=== PATIENT | female | born 1970 | race Asian ===

== ENCOUNTER 2017-01-19 09:53 | Emergency (ER) | payer OTHER ==
[~2017-01-19] VITALS: Ht 157.5 cm; Wt 70.0 kg
[2017-01-19] MEDS ORDERED: [UNRECOGNIZED DRUG - OTHER] OU (10:03)
[2017-01-19 12:21] VITALS: BP 122/75
== END 2017-01-19 12:50 | disposition home or self-care (01) ==
LOC: EMS 09:54
DX: H10.9 Unspecified conjunctivitis (principal); R05 Cough
CPT/HCPCS: 99283

== ENCOUNTER 2017-03-09 08:24 | Emergency (ER) | payer OTHER ==
[~2017-03-09] VITALS: Ht 157.5 cm; Wt 71.8 kg
[~2017-03-09 08:24] MED LIST: [UNRECOGNIZED DRUG - OTHER] OU
[2017-03-09] MEDS ORDERED: LORazepam 1 MG TABLET PO ONE (09:15)
[2017-03-09] MEDS ORDERED: ONDANSETRON HCL 4 MG TABLET PO ONE (09:15)
[2017-03-09] MEDS ORDERED: OxyCODONE HCL/ACETAMINOPHEN 5-325 MG TABLET PO ONE (09:15)
[2017-03-09 12:12] VITALS: BP 120/70
== END 2017-03-09 12:16 | disposition home or self-care (01) ==
LOC: EMS 08:27
DX: M75.31 Calcific tendinitis of right shoulder (principal)
CPT/HCPCS: 72040; 73030; 99284; Q0162

== ENCOUNTER 2019-12-11 10:17 | Emergency (ER) | payer OTHER ==
[~2019-12-11] VITALS: Ht 157.5 cm; Wt 70.5 kg
[2019-12-11] MEDS ORDERED: FOLI-130 PO (10:28)
[2019-12-11] MEDS ORDERED: KETOROLAC TROMETHAMINE 30 MG/ML VIAL IM ONE (11:15)
[2019-12-11 12:15] VITALS: BP 138/79
== END 2019-12-11 12:23 | disposition home or self-care (01) ==
LOC: EMS 10:18
DX: J02.9 Acute pharyngitis, unspecified (principal); R03.0 Elevated blood-pressure reading, without diagnosis of hypertension
CPT/HCPCS: 87430; 96372; 99283; J1885

== ENCOUNTER 2021-02-28 22:14 | Inpatient (IN) | payer OTHER ==
[~2021-02-28] VITALS: Ht 157.5 cm; Wt 68.2 kg
[~2021-02-28 22:14] MED LIST changes: +FOLI-130 PO; -[UNRECOGNIZED DRUG - OTHER] OU
[2021-02-28 23:24] LABS: BASOPHILS % (AUTO) 0.6 % (0.0-2.0); EOSINOPHILS % (AUTO) 2.4 % (1.0-6.0); HEMATOCRIT 33.4 % (36-46); HEMOGLOBIN 10.5 g/dL (12.0-16.0); LYMPHOCYTES # (AUTO) 3.3 K/uL (1.0-4.8); LYMPHOCYTES % (AUTO) 37.4 % (22.0-44.0); MEAN CORPUSCULAR HGB CONC 31.4 G/dL (31.0-37.0); MEAN CORPUSCULAR VOLUME 64 fL (80-100); MONOCYTES # (AUTO) 0.6 K/uL (0.1-1.0); MONOCYTES % (AUTO) 6.5 % (2.0-9.0); NEUTROPHILS # (AUTO) 4.7 K/uL (1.8-7.7); NEUTROPHILS % (AUTO) 53.1 % (40.0-70.0); PLATELET COUNT (AUTO) 347 K/uL (150-450); RED BLOOD CELL COUNT(AUTO) 5.24 MIL/uL (4.00-5.20); RED CELL DISTRIBUTION WIDTH 14.7 % (11.5-14.5)
[2021-02-28 23:34] LABS: ANION GAP 6 mmol/L (8-16); CALCIUM, TOTAL 8.6 mg/dL (8.8-10.5); CARBON DIOXIDE 27 mmol/L (22-29); CHLORIDE 106 mmol/L (98-107); CREATININE 0.96 mg/dL (0.60-1.30); GLOMERULAR FILTR. RATE CALC > 60 mL/min (>60); GLUCOSE,RANDOM 118 mg/dL (70-110); POTASSIUM 3.3 mmol/L (3.5-5.1); SODIUM SERUM 139 mmol/L (136-145); UREA NITROGEN, BLOOD 14 mg/dL (7-18)
[2021-02-28 23:49] LABS: ALANINE AMINOTRANSFERASE 24 U/L (12-78); ALBUMIN 3.4 g/dL (3.4-5.0); ALKALINE PHOSPHATASE 67 U/L (46-116); ASPARTATE AMINOTRANSFERASE 13 U/L (15-37); BILIRUBIN,TOTAL 0.2 mg/dL (0.1-1.0); HCG,QUANTITATIVE < 1 mIU/mL (0-6); LIPASE 94 U/L (73-393); TOTAL PROTEIN, SERUM 7.3 g/dL (6.4-8.2)
[2021-03-01] MEDS ORDERED: ONDANSETRON HCL 4 MG/2 ML VIAL IVP ONE (01:00)
[2021-03-01] MEDS ORDERED: MORPHINE SULFATE 4 MG/ML SYRINGE IVP ONE (01:00)
[2021-03-01 01:01] LABS: APPEARANCE,URINE CLOUDY (CLEAR); BILIRUBIN,URINE NEGATIVE (NEGATIVE); GLUCOSE, URINE (UA) NEGATIVE (NEGATIVE); KETONES,URINE NEGATIVE (NEGATIVE); LEUKOCYTE ESTERASE ,URINE NEGATIVE (NEGATIVE); NITRATE,URINE NEGATIVE (NEGATIVE); OCCULT BLOOD,URINE LARGE (NEGATIVE); PH,URINE 6.5 (5.0-8.0); PROTEIN,URINE NEGATIVE (NEGATIVE)
[2021-03-01 01:02] LABS: BACTERIA,URINE Rare /HPF (None Seen); SQUAMOUS EPITHELIAL CELL,UR Rare /LPF (None Seen); WBC,URINE 0-2 /HPF (0-5)
[2021-03-01] MEDS ORDERED: PIPERACILLIN/TAZO 3.375 GM/D5W 50 ML IV ONE (02:00)
[2021-03-01] MEDS ORDERED: KETOROLAC TROMETHAMINE 30 MG/ML VIAL IVP ONE (02:00)
[2021-03-01 04:42] LABS: COVID AG,FIA SOURCE NASOPHARYNGEAL
[2021-03-01] MEDS ORDERED: 0.9% SODIUM CHLORIDE 10 ML SYRINGE IVP PRN (04:45)
[2021-03-01] MEDS ORDERED: POTASSIUM CHLORIDE 10% 40 MEQ/30 ML LIQUID UDCUP PO ONE (06:15)
[2021-03-01 07:39] VITALS: BP 135/73
[2021-03-01] MEDS ORDERED: MEPERIDINE-PF 25 MG/ML VIAL IVP PRN (08:30)
[2021-03-01] MEDS ORDERED: FentaNYL CITRATE PF 100 MCG/2 ML VIAL IVP PRN (08:30)
[2021-03-01] MEDS ORDERED: HYDROmorphone 2 MG/ML VIAL IVP PRN (08:30)
[2021-03-01] MEDS ORDERED: BUPIVACAINE HCL/PF 0.5% 30 ML VIAL ONE (08:49)
[2021-03-01] MEDS ORDERED: LIDOCAINE 2%/EPI 1:200,000/PF 20 ML VIAL ONE (08:49)
[2021-03-01] MEDS ORDERED: SODIUM CHLORIDE 0.9% 1,000 ML ONE (08:49)
[2021-03-01] MEDS ORDERED: IOHEXOL 240 MG/ML 20 ML VIAL ONE (08:49)
[2021-03-01] MEDS ORDERED: RINGERS SOLUTION,LACTATED 1,000 ML IV ONE (09:25)
[2021-03-01] MEDS ORDERED: HYDROCODONE/ACETAMINOPHEN 5-325 MG TABLET PO PRN ×2 (10:00→11:00)
[2021-03-01] MEDS ORDERED: ACETAMINOPHEN 500 MG TABLET PO PRN (10:00)
[2021-03-01] MEDS ORDERED: MORPHINE SULFATE 2 MG/ML SYRINGE IVP PRN ×2 (10:00→11:00)
[2021-03-01] MEDS ORDERED: CefoTEtan DISODIUM 1 GM in DEXTROSE 5%-WATER 50 ML IV SCH (10:00)
[2021-03-01] MEDS ORDERED: ONDANSETRON HCL 4 MG/2 ML VIAL IVP PRN ×2 (10:00→11:00)
[2021-03-01] MEDS ORDERED: RINGERS SOLUTION,LACTATED 1,000 ML IV SCH (10:00)
[2021-03-01] MEDS ORDERED: IBUPROFEN 800 MG TABLET PO PRN (10:00)
[2021-03-01 10:50] VITALS: BP 123/75
[2021-03-01] MEDS ORDERED: POTASSIUM CHLORIDE 20 MEQ ER TABLET PO PRN (11:00)
[2021-03-01] MEDS ORDERED: BISACODYL 10 MG RECTAL RECTAL SUPPOSITORY PR PRN (11:00)
[2021-03-01] MEDS ORDERED: ACETAMINOPHEN 325 MG TABLET PO PRN (11:00)
[2021-03-01] MEDS ORDERED: SODIUM CHLORIDE 0.9% 1,000 ML IV ONE (11:00)
[2021-03-01] MEDS ORDERED: MAGNESIUM HYDROXIDE SUSPENSION 30 ML UDCUP PO PRN (11:00)
[2021-03-01] MEDS ORDERED: POTASSIUM CHL 10 MEQ/WATER 50 ML IV PRN (11:00)
[2021-03-01] MEDS ORDERED: ZOLPIDEM TARTRATE 5 MG TABLET PO PRN (11:00)
[2021-03-01] MEDS: PIPERACILLIN/TAZO 3.375 GM/D5W 50 ML IV SCH ×3 (12:39→23:57)
[2021-03-01 14:59] VITALS: BP 126/76
[2021-03-01] MEDS: HEPARIN SODIUM,PORCINE 5,000 UNITS/ML VIAL SQ SCH ×2 (15:37→23:47)
[2021-03-01] MEDS: OXYGEN THERAPY IH SCH (20:00)
[2021-03-01 20:28] VITALS: BP 121/59
[2021-03-01] MEDS: DOCUSATE SODIUM 100 MG CAPSULE PO SCH (20:52)
[2021-03-02 04:00] VITALS: BP 128/72
[2021-03-02] MEDS: PIPERACILLIN/TAZO 3.375 GM/D5W 50 ML IV SCH ×2 (05:59→11:49)
[2021-03-02] MEDS ORDERED: SODIUM CHLORIDE 0.9% 250 ML IV ONE (06:01)
[2021-03-02] MEDS ORDERED: MORPHINE SULFATE 4 MG/ML SYRINGE IVP ONE (07:05)
[2021-03-02] MEDS ORDERED: MIDAZOLAM HCL 2 MG/2 ML VIAL IVP ONE (07:05)
[2021-03-02] MEDS ORDERED: PROPOFOL 1% 20 ML VIAL IVP ONE (07:05)
[2021-03-02] MEDS ORDERED: ONDANSETRON HCL 4 MG/2 ML VIAL IVP ONE (07:05)
[2021-03-02] MEDS ORDERED: ROCURONIUM BROMIDE 10 MG/ML 5 ML VIAL IVP ONE (07:05)
[2021-03-02] MEDS ORDERED: LIDOCAINE/PF 2% 5 ML VIAL IM ONE (07:05)
[2021-03-02] MEDS ORDERED: 0.9% SODIUM CHLORIDE 10 ML VIAL IVP ONE (07:05)
[2021-03-02] MEDS ORDERED: FentaNYL CITRATE PF 100 MCG/2 ML VIAL IVP ONE (07:05)
[2021-03-02] MEDS ORDERED: DEXAMETHASONE SOD PHOS 4 MG/ML VIAL IVP ONE (07:05)
[2021-03-02] MEDS: OXYGEN THERAPY IH SCH (08:00)
[2021-03-02 08:12] LABS: BASOPHILS % (AUTO) 0.1 % (0.0-2.0); EOSINOPHILS % (AUTO) 0.1 % (1.0-6.0); HEMATOCRIT 34.9 % (36-46); HEMOGLOBIN 10.7 g/dL (12.0-16.0); LYMPHOCYTES # (AUTO) 2.4 K/uL (1.0-4.8); LYMPHOCYTES % (AUTO) 16.1 % (22.0-44.0); MEAN CORPUSCULAR HEMOGLOBIN 19.7 pg (26.0-34.0); MEAN CORPUSCULAR HGB CONC 30.8 G/dL (31.0-37.0); MEAN CORPUSCULAR VOLUME 64 fL (80-100); MONOCYTES # (AUTO) 0.6 K/uL (0.1-1.0); MONOCYTES % (AUTO) 4.1 % (2.0-9.0); NEUTROPHILS # (AUTO) 11.7 K/uL (1.8-7.7); NEUTROPHILS % (AUTO) 79.6 % (40.0-70.0); PLATELET COUNT (AUTO) 410 K/uL (150-450); RED BLOOD CELL COUNT(AUTO) 5.45 MIL/uL (4.00-5.20); RED CELL DISTRIBUTION WIDTH 14.6 % (11.5-14.5)
[2021-03-02] MEDS: DOCUSATE SODIUM 100 MG CAPSULE PO SCH (08:16)
[2021-03-02] MEDS: HEPARIN SODIUM,PORCINE 5,000 UNITS/ML VIAL SQ SCH (08:16)
[2021-03-02 08:28] LABS: ALANINE AMINOTRANSFERASE 62 U/L (12-78); ALBUMIN 3.1 g/dL (3.4-5.0); ALKALINE PHOSPHATASE 63 U/L (46-116); ANION GAP 9 mmol/L (8-16); ASPARTATE AMINOTRANSFERASE 52 U/L (15-37); BILIRUBIN,TOTAL 0.3 mg/dL (0.1-1.0); CALCIUM, TOTAL 8.1 mg/dL (8.8-10.5); CARBON DIOXIDE 23 mmol/L (22-29); CHLORIDE 104 mmol/L (98-107); CREATININE 0.67 mg/dL (0.60-1.30); GLOMERULAR FILTR. RATE CALC > 60 mL/min (>60); GLUCOSE,RANDOM 107 mg/dL (70-110); POTASSIUM 3.7 mmol/L (3.5-5.1); SODIUM SERUM 136 mmol/L (136-145); TOTAL PROTEIN, SERUM 7.1 g/dL (6.4-8.2); UREA NITROGEN, BLOOD 11 mg/dL (7-18)
[2021-03-02 08:33] VITALS: BP 127/74
[2021-03-02] MEDS ORDERED: PANTOPRAZOLE SODIUM 40 MG DR TABLET PO SCH (09:00)
== END 2021-03-02 13:18 | disposition home or self-care (01) | DRG 418 ==
LOC: EMS 22:22 → 6N 03-01 06:38
PROVIDERS: ADMIT Internal Medicine; ATTEND Internal Medicine
PROC: 0FT44ZZ Resection of Gallbladder, Percutaneous Endoscopic Approach (ICD-10-PCS; principal; 2021-03-01 09:00)
DX: K80.00 Calculus of gallbladder with acute cholecystitis without obstruction (principal); R65.10 Systemic inflammatory response syndrome (SIRS) of non-infectious origin without acute organ dysfunction; D64.9 Anemia, unspecified; Z20.822 Contact with and (suspected) exposure to COVID-19; E87.6 Hypokalemia; F17.210 Nicotine dependence, cigarettes, uncomplicated; Z79.899 Other long term (current) drug therapy
CPT/HCPCS: 74022; 76705; 80053; 81001; 83690; 84132; 84484; 84702; 85025; 87081; 88304; 93005; 99285; G0238; J0690; J1100; J1644; J1885; J2250; J2270; J2405; J2543; J2704; J3010; J3490; J7030; J7050; J7060; J7120; Q9966

== ENCOUNTER 2023-04-05 12:55 | Emergency (ER) | payer OTHER ==
[~2023-04-05] VITALS: Ht 157.5 cm; Wt 68.2 kg
[2023-04-05 13:02] VITALS: TEMP 97.9
[2023-04-05] MEDS ORDERED: CHOL25TA4 PO (13:05)
[2023-04-05] MEDS ORDERED: CHOL10002 PO (13:05)
[2023-04-05] MEDS ORDERED: ATOR20TA65 PO (13:05)
[2023-04-05 14:47] VITALS: BP 144/72; PULSE 88; RESP 18
[2023-04-05] MEDS ORDERED: LIDOCAINE 5% TRANSDERMAL PATCH TD ONE (15:30)
[2023-04-05] MEDS ORDERED: IBUPROFEN 600 MG TABLET PO ONE (15:30)
[2023-04-05] MEDS ORDERED: BACLOFEN 10 MG TABLET PO ONE (15:30)
[2023-04-05] MEDS ORDERED: IBUP-1492 PO (18:59)
[2023-04-05] MEDS ORDERED: LIDO700A15 TP (19:01)
[2023-04-05] MEDS ORDERED: BACL10TA PO (19:01)
== END 2023-04-05 19:08 | disposition home or self-care (01) ==
LOC: EMS 13:01
DX: M54.50 Low back pain, unspecified (principal); F17.210 Nicotine dependence, cigarettes, uncomplicated; Z98.890 Other specified postprocedural states
CPT/HCPCS: 72131; 99284

== ENCOUNTER 2024-10-06 22:48 | Emergency (ER) | payer OTHER ==
[~2024-10-06] VITALS: Ht 157.5 cm; Wt 68.2 kg
[~2024-10-06 22:48] MED LIST changes: +ATOR20TA65 PO; +BACL10TA PO; +CHOL10002 PO; +CHOL25TA4 PO; -FOLI-130 PO; +IBUP-1492 PO; +LIDO700A15 TP
[2024-10-07] MEDS ORDERED: NEOM10SO24 AS (01:18)
[2024-10-07] MEDS ORDERED: ACET-3385 PO (01:18)
[2024-10-07] MEDS ORDERED: IBUP-1492 PO (01:18)
[2024-10-07] MEDS ORDERED: AMOX-457 PO (01:18)
[2024-10-07 01:50] VITALS: BP 129/85; PULSE 88; RESP 18; TEMP 98.9; O2SAT 97
[2024-10-07] MEDS: ACETAMINOPHEN 500 MG TABLET PO ONE (02:04)
[2024-10-07] MEDS: AMOX TR/POT CLAV 875 MG/125 MG TABLET PO ONE (02:04)
[2024-10-07] MEDS: NEOMYCIN/POLYMYXIN B/HYDROCORT 10 ML OTIC SOLUTION AS ONE (02:04)
== END 2024-10-07 02:06 | disposition home or self-care (01) ==
LOC: EMS 22:49
DX: H66.92 Otitis media, unspecified, left ear (principal); J45.909 Unspecified asthma, uncomplicated; D64.9 Anemia, unspecified; F17.210 Nicotine dependence, cigarettes, uncomplicated; Z79.899 Other long term (current) drug therapy; Z20.822 Contact with and (suspected) exposure to COVID-19
CPT/HCPCS: 99284; Z7502; Z7610